=== PATIENT | female | born 1985 | race Caucasian/White ===

== ENCOUNTER 2018-01-18 10:19 | Emergency (ER) | payer OTHER ==
[2018-01-18 11:27] LABS: Absolute Lymphocytes (CBC) 2.6 K/uL (0.7-4.9); Absolute Monocytes 0.8 K/uL (0.1-1.3); Basophils % 0.4 % (0-1.3); Eosinophils % 3.7 % (0-4.4); Hematocrit 40.5 % (36.0-45.0); Lymphocytes % 29.4 % (15.3-44.8); MCH 30.9 pg (27.0-35.0); MPV 9.2 fL (7.6-11.3); Monocytes % 9.3 % (3.3-12.3); RBC Red Blood Cell Count 4.49 M/uL (3.86-4.86)
--- NOTE | 2018-01-18 11:27 | RAD REPORT ---
EXAM DESCRIPTION: RAD - Chest Single View - 01/18/2018 11:13 am CLINICAL HISTORY: CHEST PAIN Chest pain. COMPARISON: CHEST SINGLE VIEW dated 03/28/2009 FINDINGS: Portable technique limits examination quality. The lungs are grossly clear. The heart is normal in size. No displaced fractures. IMPRESSION: No acute intrathoracic process suspected.
[2018-01-18 11:45] LABS: BUN Blood Urea Nitrogen 14 mg/dL (7-18); Bicarbonate 28 mmol/L (21-32); Glucose Level 137 mg/dL (74-106); Potassium 3.3 mmol/L (3.5-5.1); Sodium Level 139 mmol/L (136-145); Troponin (Emerg Dept Use Only) < 0.02 ng/mL (0.0-0.045)
--- NOTE | 2018-01-18 11:53 | ER ---
Nurse's Notes [facility] Name: Marlys Davis Age: 32 yrs Sex: Female : 1985 Arrival Date: 01/18/2018 Time: 10:22 Bed 13 Private MD: ANGEL LUIS Diagnosis: Chest pain, unspecified Presentation: 01/18 10:28 Presenting complaint: Patient states: " I was walking in [employer] and I got a ph tearing chest pain and got very SOB." Pt reports pain in center of chest, SOB, and dizziness when pain occurred, denies N/V. Transition of care: patient was not received from another setting of care. Onset of symptoms was January 18, 2018. Risk Assessment: Do you want to hurt yourself or someone else? Patient reports no desire to harm self or others. Initial Sepsis Screen: Does the patient meet any 2 criteria? No. Patient's initial sepsis screen is negative. Does the patient have a suspected source of infection? No. Patient's initial sepsis screen is negative. Care prior to arrival: None. 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 - Social history:: The patient lives at home, Smoking status: Patient/guardian denies using tobacco. - Ebola Screening: : Patient negative for fever greater than or equal to 101.5 degrees Fahrenheit, and additional compatible Ebola Virus Disease symptoms. Screenin:30 Abuse screen: Denies threats or abuse. Nutritional screening: No deficits noted. rb1 Tuberculosis screening: No symptoms or risk factors identified. Fall Risk None identified. Assessment: 10:30 General: Appears in no apparent distress. comfortable, obese, Behavior is calm, rb1 cooperative. Pain: Complains of pain in mid-sternal area Pain does not radiate. Pain currently is 8 out of 10 on a pain scale. Pain began 20 minutes ago. Neuro: Level of Consciousness is awake, alert, obeys commands, Oriented to person, place, time, situation. Neuro: Reports dizziness. Cardiovascular: Capillary refill < 3 seconds is brisk in bilateral fingers. Respiratory: Reports shortness of breath at rest Airway is patent Respiratory effort is even, unlabored, Respiratory pattern is regular, symmetrical. GI: No signs and/or symptoms were reported involving the gastrointestinal system. : No signs and/or symptoms were reported regarding the genitourinary system. Derm: Skin is pink, warm \\T\\ dry. 11:30 Reassessment: Patient appears in no apparent distress at this time. Patient and/or rb1 family updated on plan of care and expected duration. Pain level reassessed. Patient is alert, oriented x 3, equal unlabored respirations, skin warm/dry/pink. Vital Signs: 10:30 BP 144 / 91; Pulse 99; Resp 20; Temp 98.2; Pulse Ox 96% on R/A; Weight 149.69 kg; ph Height 5 ft. 7 in. (170.18 cm); Pain 5/10; 11:30 BP 129 / 82; Pulse 86; Resp 19; Pulse Ox 99% ; rb1 12:10 BP 121 / 74; Pulse 89; Resp 16; Pulse Ox 99% ; jl7 10:30 Body Mass Index 51.68 (149.69 kg, 170.18 cm) ph ED Course: 10:22 Patient arrived in ED. sb2 10:22 ANGEL LUIS is Private Physician. sb2 10:30 Triage completed. ph 10:30 Juliano Carter MD is Attending Physician. gs 10:30 Patient has correct armband on for positive identification. Placed in gown. Bed in low rb1 position. Call light in reach. Side rails up X 1. tube and manifold builder on. Pulse ox on. NIBP on. Warm blanket given. 10:30 Arm band placed on right wrist. rb1 10:30 Patient maintains SpO2 saturation greater than 95% on room air. rb1 10:31 Tigist Recinos, EMMA is Primary Nurse. rb1 11:08 Inserted saline lock: 20 gauge in right forearm, using aseptic technique. Blood sm4 collected. 11:13 XRAY Chest (1 view) In Process Unspecified. EDMS 11:14 X-ray completed. Portable x-ray completed in exam room. Patient tolerated procedure jb2 well. 11:27 EKG done, by final operations technician. at1 12:10 No provider procedures requiring assistance completed. IV discontinued, intact, jl7 bleeding controlled, No redness/swelling at site. Pressure dressing applied. Administered Medications: No medications were administered Outcome: 11:52 Discharge ordered by MD. gs 12:10 Discharged to home ambulatory. jl7 12:10 Condition: stable 12:10 Discharge instructions given to patient, Instructed on discharge instructions, follow up and referral plans. Demonstrated understanding of instructions, follow-up care. 12:11 Patient left the ED. jl7 12:17 Patient left the ED. Signatures: Dispatcher [employer] EDMS Joe Landon jb2 Siria Browne, student records coordinator EKG Tat1 Maria L Yan RN EMMA Tigist Recinos, RN RN rb1 Grecia Bernal RN RN jl7 Juliano Carter MD MD Mckenna Hill sb2 Ariel Loja RN RN sm4
--- NOTE | 2018-01-18 11:53 | EDPHYS ---
Physician Documentation [facility] Name: Marlys Davis Age: 32 yrs Sex: Female : 1985 Arrival Date: 01/18/2018 Time: 10:22 Bed 13 Private MD: ANGEL LUIS ED Physician Juliano Carter HPI: 01/18 12:03 This 32 yrs old Female presents to ER via Ambulatory with complaints of Chest gs Pain, Shortness Of Breath. 12:03 The patient or guardian reports chest pain that is located primarily in the anterior gs chest wall. The pain does not radiate. Associated signs and symptoms: Pertinent positives: shortness of breath. The chest pain is described as sharp. Duration: The patient or guardian reports a single episode, that lasted 5 minute(s). Modifying factors: The symptoms are alleviated by nothing. the symptoms are aggravated by nothing. Severity of pain: At its worst the pain was moderate in the emergency department the pain has resolved and did so just prior to arrival. The patient has not experienced similar symptoms in the past. 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 - Social history:: The patient lives at home, Smoking status: Patient/guardian denies using tobacco. - Ebola Screening: : Patient negative for fever greater than or equal to 101.5 degrees Fahrenheit, and additional compatible Ebola Virus Disease symptoms. ROS: 12:03 All other systems are negative. gs Exam: 12:03 Constitutional: The patient appears alert, awake. gs 12:09 Head/Face: Normocephalic, atraumatic. Eyes: Pupils equal round and reactive to light, gs extra-ocular motions intact. Lids and lashes normal. Conjunctiva and sclera are non-icteric and not injected. Cornea within normal limits. Periorbital areas with no swelling, redness, or edema. ENT: Nares patent. No nasal discharge, no septal abnormalities noted. Tympanic membranes are normal and external auditory canals are clear. Oropharynx with no redness, swelling, or masses, exudates, or evidence of obstruction, uvula midline. Mucous membranes moist. Neck: Trachea midline, no thyromegaly or masses palpated, and no cervical lymphadenopathy. Supple, full range of motion without nuchal rigidity, or vertebral point tenderness. No Meningismus. Chest/axilla: Normal chest wall appearance and motion. Nontender with no deformity. No lesions are appreciated. Cardiovascular: Regular rate and rhythm with a normal S1 and S2. No gallops, murmurs, or rubs. Normal PMI, no JVD. No pulse deficits. Respiratory: Lungs have equal breath sounds bilaterally, clear to auscultation and percussion. No rales, rhonchi or wheezes noted. No increased work of breathing, no retractions or nasal flaring. Abdomen/GI: Soft, non-tender, with normal bowel sounds. No distension or tympany. No guarding or rebound. No evidence of tenderness throughout. Back: No spinal tenderness. No costovertebral tenderness. Full range of motion. Skin: Warm, dry with normal turgor. Normal color with no rashes, no lesions, and no evidence of cellulitis. MS/ Extremity: Pulses equal, no cyanosis. Neurovascular intact. Full, normal range of motion. Neuro: Awake and alert, GCS 15, oriented to person, place, time, and situation. Cranial nerves II-XII grossly intact. Motor strength 5/5 in all extremities. Sensory grossly intact. Cerebellar exam normal. Normal gait. 12:09 Constitutional: The patient appears in no acute distress. Vital Signs: 10:30 BP 144 / 91; Pulse 99; Resp 20; Temp 98.2; Pulse Ox 96% on R/A; Weight 149.69 kg; ph Height 5 ft. 7 in. (170.18 cm); Pain 5/10; 11:30 BP 129 / 82; Pulse 86; Resp 19; Pulse Ox 99% ; rb1 12:10 BP 121 / 74; Pulse 89; Resp 16; Pulse Ox 99% ; jl7 10:30 Body Mass Index 51.68 (149.69 kg, 170.18 cm) ph MDM: 10:42 Patient medically screened. gs 12:09 Differential diagnosis: anxiety, coronary artery disease chest wall pain, pulmonary gs embolus. Data reviewed: vital signs, nurses notes. Counseling: I had a detailed discussion with the patient and/or guardian regarding: the historical points, exam findings, and any diagnostic results supporting the discharge/admit diagnosis, the presence of at least one elevated blood pressure reading (>120/80) during this emergency department visit, lab results, radiology results, the need for outpatient follow up. Special discussion: I have referred the patient to see his PCP for further evaluation of high blood pressure. 01/18 10:43 Order name: Basic Metabolic Panel; Complete Time: 11:51 01/18 10:43 Order name: CBC with Diff; Complete Time: 11:51 01/18 10:43 Order name: Troponin (emerg Dept Use Only); Complete Time: 11:51 01/18 10:43 Order name: D-Dimer; Complete Time: 11:51 01/18 12:09 Order name: Urine Dipstick--Ancillary (enter results) eb 01/18 12:09 Order name: Urine --Ancillary (enter results) eb 01/18 10:43 Order name: XRAY Chest (1 view); Complete Time: 11:51 01/18 10:43 Order name: EKG; Complete Time: 10:44 01/18 10:43 Order name: Cardiac monitoring; Complete Time: 11:07 01/18 10:43 Order name: EKG - Nurse/Tech; Complete Time: 11:52 01/18 10:43 Order name: IV Saline Lock; Complete Time: 11:35 01/18 10:43 Order name: Labs collected and sent; Complete Time: 11:35 01/18 10:43 Order name: O2 Per Protocol; Complete Time: 11:15 01/18 10:43 Order name: O2 Sat Monitoring; Complete Time: 11:15 01/18 10:43 Order name: Urine Dipstick-Ancillary (obtain specimen); Complete Time: 16:28 01/18 10:43 Order name: Urine Test (obtain specimen); Complete Time: 16:28 gs Administered Medications: No medications were administered Disposition: 01/18/18 11:52 Discharged to Home. Impression: Chest pain, unspecified. - Condition is Stable. - Discharge Instructions: Nonspecific Chest Pain, Managing Your Hypertension. - Medication Reconciliation Form, Thank You Letter, Antibiotic Education, Prescription Opioid Use form. - Follow up: Private Physician; When: 2 - 3 days; Reason: Re-evaluation by your physician. Signatures: Dispatcher [employer] EDMS Tigist Recinos RN MEMA [place] Grecia Bernal RN RN jl7 Juliano Carter MD MD Corrections: (The following items were deleted from the chart) 12:11 11:52 01/18/2018 11:52 Discharged to Home. Impression: Chest pain, unspecified. jl7 Condition is Stable. Forms are Medication Reconciliation Form, Thank You Letter, Antibiotic Education, Prescription Opioid Use. Follow up: Private Physician; When: 2 - 3 days; Reason: Re-evaluation by your physician. 12:17 12:11 01/18/2018 11:52 Discharged to Home. Impression: Chest pain, unspecified. gs Condition is Stable. Discharge Instructions: Nonspecific Chest Pain. Forms are Medication Reconciliation Form, Thank You Letter, Antibiotic Education, Prescription Opioid Use. Follow up: Private Physician; When: 2 - 3 days; Reason: Re-evaluation by your physician. jl7
--- NOTE | 2018-01-18 12:18 | EKG ---
Test Date: 2018-01-18 Test Time: 10:42:34 Analysis Internship: [facility] MEASUREMENT RESULTS: Intervals: Rate: 92 CO: 138 QRSD: 90 QT: 374 QTc: 462 [place]: P: 37 CO: 138 QRS: 17 T: 56 INTERPRETIVE STATEMENTS: Normal sinus rhythm Normal ECG No previous ECG available for comparison Electronically Signed On 01-18-18 12:17:41 CDT by Nate Chand
[2018-01-18 13:44] LABS: Urine Blood NEGATIVE (NEG); Urine Glucose NEGATIVE (NEG); Urine Protein NEGATIVE (NEG)
== END 2018-01-18 12:17 | disposition home or self-care (01) ==
LOC: ER 10:19
DX: R07.9 Chest pain, unspecified (principal); F41.9 Anxiety disorder, unspecified; Z91.018 Allergy to other foods
CPT/HCPCS: 36415; 71045; 80048; 81003; 81025; 84484; 85025; 85379; 93005; 99285

== ENCOUNTER 2018-11-10 22:05 | Emergency (ER) | payer OTHER ==
[2018-11-10 23:34] LABS: Absolute Lymphocytes (CBC) 2.1 K/uL (0.7-4.9); Basophils % 0.6 % (0-1.3); Eosinophils % 5.3 % (0-4.4); Lymphocytes % 22.1 % (15.3-44.8); Monocytes % 8.5 % (3.3-12.3); RBC Red Blood Cell Count 4.56 M/uL (3.86-4.86)
[2018-11-10 23:41] LABS: ALT/SGPT 54 U/L (12-78); AST/SGOT 29 U/L (15-37); Albumin 3.9 g/dL (3.4-5.0); Alkaline Phosphatase 87 U/L (45-117); BUN Blood Urea Nitrogen 12 mg/dL (7-18); Bicarbonate 27 mmol/L (21-32); Bilirubin Direct < 0.1 mg/dL (0-0.2); Bilirubin Total 0.3 mg/dL (0.2-1.0); Glucose Level 105 mg/dL (74-106); Lipase 84 U/L (73-393); Potassium 3.5 mmol/L (3.5-5.1); Protein, Total 7.2 g/dL (6.4-8.2); Sodium Level 142 mmol/L (136-145)
[2018-11-10] MEDS ORDERED: PROMETHAZINE 25 MG/ML VIAL ONE (23:56)
[2018-11-11 00:34] LABS: Urine Blood NEGATIVE (NEG); Urine Glucose NEGATIVE (NEG); Urine Protein NEGATIVE (NEG); Urine pH 6.5 (5.0-7.0)
--- NOTE | 2018-11-11 02:27 | EDPHYS ---
Physician Documentation [facility] Name: Marlys Davis Age: 33 yrs Sex: Female : 1985 Arrival Date: 11/10/2018 Time: 22:09 Bed 6 Private MD: ED Physician Ranjeet Woods HPI: 11/11 00:29 This 33 yrs old Female presents to ER via Ambulatory with complaints of pm1 Abdominal Pain. 00:29 The patient presents with abdominal pain in the epigastric area. Onset: The pm1 symptoms/episode began/occurred 1 week(s) ago. The symptoms do not radiate. 00:30 Associated signs and symptoms: Pertinent positives: diarrhea, nausea, Pertinent pm1 negatives: chest pain, dysuria, fever, shortness of breath. The symptoms are described as burning, constant. Modifying factors: The symptoms are alleviated by right side lying position. the symptoms are aggravated by lying down . Severity of pain: in the emergency department the pain is actually worse. The patient has not recently seen a physician. Historical: - Allergies: 11/10 22:41 Tomatoes; fc 22:41 NKDA; fc - Home Meds: 22:41 lorazepam 2 mg oral tab 1 tab once daily [Active]; naproxen 500 mg Oral tab 1 tab tid fc prn [Active]; Otezla 30 mg oral tab 1 tab 2 times per day [Active]; - PMHx: 22:41 Anxiety; Psoractic Arthritis; psoriasis; fc - PSHx: 22:41 left forearm; fc - Immunization history:: Last tetanus immunization: unknown. - Social history:: Smoking status: Patient/guardian denies using tobacco, Patient/guardian denies using alcohol, street drugs. - Ebola Screening: : Patient negative for fever greater than or equal to 101.5 degrees Fahrenheit, and additional compatible Ebola Virus Disease symptoms Patient denies exposure to infectious person Patient denies travel to an Ebola-affected area in the 21 days before illness onset. ROS: 11/11 00:30 Constitutional: Negative for fever, chills, and weight loss, Eyes: Negative for injury, pm1 pain, redness, and discharge, ENT: Negative for injury, pain, and discharge, Neck: Negative for injury, pain, and swelling, Cardiovascular: Negative for chest pain, palpitations, and edema, Respiratory: Negative for shortness of breath, cough, wheezing, and pleuritic chest pain. Back: Negative for injury and pain, : Negative for injury, bleeding, discharge, and swelling, MS/Extremity: Negative for injury and deformity, Skin: Negative for injury, rash, and discoloration, Neuro: Negative for headache, weakness, numbness, tingling, and seizure. Abdomen/GI: Positive for abdominal pain, nausea, diarrhea, Negative for vomiting, constipation. Exam: 00:30 Constitutional: This is a well developed, well nourished patient who is awake, alert, pm1 and in no acute distress. Head/Face: Normocephalic, atraumatic. Eyes: Pupils equal round and reactive to light, extra-ocular motions intact. Lids and lashes normal. Conjunctiva and sclera are non-icteric and not injected. Cornea within normal limits. Periorbital areas with no swelling, redness, or edema. ENT: Nares patent. No nasal discharge, no septal abnormalities noted. Tympanic membranes are normal and external auditory canals are clear. Oropharynx with no redness, swelling, or masses, exudates, or evidence of obstruction, uvula midline. Mucous membranes moist. Neck: Trachea midline, no thyromegaly or masses palpated, and no cervical lymphadenopathy. Supple, full range of motion without nuchal rigidity, or vertebral point tenderness. No Meningismus. Chest/axilla: Normal chest wall appearance and motion. Nontender with no deformity. No lesions are appreciated. Cardiovascular: Regular rate and rhythm with a normal S1 and S2. No gallops, murmurs, or rubs. Normal PMI, no JVD. No pulse deficits. Respiratory: Lungs have equal breath sounds bilaterally, clear to auscultation and percussion. No rales, rhonchi or wheezes noted. No increased work of breathing, no retractions or nasal flaring. Back: No spinal tenderness. No costovertebral tenderness. Full range of motion. 00:30 Skin: Warm, dry with normal turgor. Normal color with no rashes, no lesions, and no evidence of cellulitis. MS/ Extremity: Pulses equal, no cyanosis. Neurovascular intact. Full, normal range of motion. 00:30 Abdomen/GI: Inspection: obese Bowel sounds: normal, Palpation: soft, mild abdominal tenderness, in the epigastric area, mass, is not appreciated, rebound tenderness, is not appreciated. 00:30 Neuro: Orientation: is normal, Motor: is normal, Sensation: is normal, no obvious gross deficits. Vital Signs: 11/10 22:15 BP 157 / 94; Pulse 82; Resp 18; Temp 97.5(O); Pulse Ox 98% on R/A; Weight 158.76 kg fc (R); Height 5 ft. 7 in. (170.18 cm) (R); Pain 6/10; 23:30 BP 135 / 79; Pulse 82; Resp 18; Pulse Ox 97% ; ea 11/11 00:42 BP 146 / 86; Pulse 68; Resp 18; Pulse Ox 96% on R/A; ea 01:07 BP 142 / 95; Pulse 80; Resp 18; Pulse Ox 98% on R/A; ea 02:50 BP 140 / 89; Pulse 81; Resp 18; Pulse Ox 98% on R/A; tl2 11/10 22:15 Body Mass Index 54.82 (158.76 kg, 170.18 cm) fc MDM: 11/10 22:26 Patient medically screened. pm1 11/11 00:33 Data reviewed: vital signs. Data interpreted: Pulse oximetry: on room air is 97 %. pm1 Interpretation: normal. 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 11/10 22:45 Order name: Basic Metabolic Panel pm1 11/10 22:45 Order name: CBC with Diff; Complete Time: 23:46 pm1 11/10 22:45 Order name: Creatinine for Radiology; Complete Time: 23:42 pm1 11/10 22:45 Order name: Hepatic Function; Complete Time: 23:43 pm1 11/10 22:45 Order name: Lipase; Complete Time: 23:43 pm1 11/10 22:46 Order name: Basic Metabolic Panel; Complete Time: 23:43 EDMS 11/10 22:28 Order name: US Abdomen Limited 11/10 22:45 Order name: IV Saline Lock; Complete Time: 23:04 pm1 11/10 22:55 Order name: CT Abd/Pelvis - IV Contrast Only pm1 11/10 22:56 Order name: Urine Dipstick--Ancillary (enter results); Complete Time: 01:20 mw2 11/10 22:56 Order name: Urine --Ancillary (enter results); Complete Time: 01:20 mw2 11/10 22:45 Order name: Labs collected and sent; Complete Time: 23:04 pm1 11/10 22:45 Order name: Urine Dipstick-Ancillary (obtain specimen); Complete Time: 22:49 pm1 11/10 22:45 Order name: Urine Test (obtain specimen); Complete Time: 22:49 pm1 Administered Medications: 11/10 23:15 Drug: Phenergan 12.5 mg Route: IVP; Site: left antecubital; ea 11/11 00:36 Follow up: Response: No adverse reaction; Nausea is decreased ea 02:49 Drug: GI Cocktail without - (Maalox Suspension 30 ml, Lidocaine Liquid 2 % 15 tl2 ml) Route: PO; 02:51 Follow up: Response: No adverse reaction; Marked relief of symptoms tl2 02:50 Drug: Pepcid 20 mg Route: IVP; Site: left antecubital; tl2 02:52 Follow up: Response: No adverse reaction tl2 Disposition: 09:33 Co-signature as Attending Physician, Ranjeet Woods MD I agree with the assessment and salvador plan of care. Disposition: 11/11/18 02:27 Discharged to Home. Impression: Unspecified abdominal pain. - Condition is Stable. - Discharge Instructions: Abdominal Pain, Adult. - Prescriptions for Bentyl 20 mg Oral Tablet - take 1 tablet by ORAL route every 6 hours As needed; 20 tablet. Pepcid 20 mg Oral Tablet - take 1 tablet by ORAL route every 12 hours for 10 days; 20 tablet. promethazine 25 mg Oral Tablet - take 1 tablet by ORAL route every 6 hours As needed; 20 tablet. - Medication Reconciliation Form, Thank You Letter, Antibiotic Education, Prescription Opioid Use, Work release form form. - Follow up: Emergency Department; When: As needed; Reason: Worsening of condition. Follow up: Private Physician; When: 2 - 3 days; Reason: Recheck today's complaints, Continuance of care, Re-evaluation by your physician. - Problem is new. - Symptoms have improved. Signatures: Dispatcher [employer] EDMS Ranjeet Woods, Winter Thompson MD, cha RN EMMA Silvino Inman NP STORE [facility] pm1 Zoila Martines RN RN tl2 Sherry Benitez RN RN ea Corrections: (The following items were deleted from the chart) 02:52 02:27 11/11/2018 02:27 Discharged to Home. Impression: Unspecified abdominal pain. tl2 Condition is Stable. Forms are Medication Reconciliation Form, Thank You Letter, Antibiotic Education, Prescription Opioid Use. Follow up: Emergency Department; When: As needed; Reason: Worsening of condition. Follow up: Private Physician; When: 2 - 3 days; Reason: Recheck today's complaints, Continuance of care, Re-evaluation by your physician. Problem is new. Symptoms have improved. pm1
--- NOTE | 2018-11-11 02:27 | ER ---
Nurse's Notes [facility] Name: Marlys Davis Age: 33 yrs Sex: Female : 1985 Arrival Date: 11/10/2018 Time: 22:09 Bed 6 Private MD: Diagnosis: Unspecified abdominal pain Presentation: 11/10 22:15 Presenting complaint: Patient states: that she has been having sharp mid/right upper fc abd pain x 1 week. Positive nausea and diarrhea. Transition of care: patient was not received from another setting of care. Onset of symptoms was November 03, 2018. Risk Assessment: Do you want to hurt yourself or someone else? Patient reports no desire to harm self or others. Initial Sepsis Screen: Does the patient meet any 2 criteria? No. Patient's initial sepsis screen is negative. Does the patient have a suspected source of infection? No. Patient's initial sepsis screen is negative. Care prior to arrival: None. 22:15 Method Of Arrival: Ambulatory 22:15 Acuity: CHRISTY 3 fc Historical: - Allergies: 22:41 Tomatoes; fc 22:41 NKDA; fc - Home Meds: 22:41 lorazepam 2 mg oral tab 1 tab once daily [Active]; naproxen 500 mg Oral tab 1 tab tid fc prn [Active]; Otezla 30 mg oral tab 1 tab 2 times per day [Active]; - PMHx: 22:41 Anxiety; Psoractic Arthritis; psoriasis; fc - PSHx: 22:41 left forearm; fc - Immunization history:: Last tetanus immunization: unknown. - Social history:: Smoking status: Patient/guardian denies using tobacco, Patient/guardian denies using alcohol, street drugs. - Ebola Screening: : Patient negative for fever greater than or equal to 101.5 degrees Fahrenheit, and additional compatible Ebola Virus Disease symptoms Patient denies exposure to infectious person Patient denies travel to an Ebola-affected area in the 21 days before illness onset. Screenin:15 Abuse screen: Denies threats or abuse. Nutritional screening: No deficits noted. fc Tuberculosis screening: No symptoms or risk factors identified. Fall Risk None identified. Assessment: 22:30 General: Appears uncomfortable, Behavior is calm, cooperative, appropriate for age. ea Pain: Complains of pain in abdomen. Neuro: Level of Consciousness is awake, alert, obeys commands, Oriented to person, place, time, situation. Cardiovascular: Patient's skin is warm and dry. Respiratory: Airway is patent Respiratory effort is even, unlabored, Respiratory pattern is regular, symmetrical. GI: Bowel sounds present X 4 quads. Abd is soft and non tender X 4 quads. Derm: Skin is pink, warm \T\ dry. 23:28 Reassessment: Patient and/or family updated on plan of care and expected duration. Pain ea level reassessed. Patient is alert, oriented x 3, equal unlabored respirations, skin warm/dry/pink. Awaiting on ultrasound results. 11/11 00:41 Reassessment: Patient and/or family updated on plan of care and expected duration. Pain ea level reassessed. Patient is alert, oriented x 3, equal unlabored respirations, skin warm/dry/pink. 01:06 Reassessment: Patient and/or family updated on plan of care and expected duration. Pain ea level reassessed. Patient is alert, oriented x 3, equal unlabored respirations, skin warm/dry/pink. Pt returned from CT. 02:50 Reassessment: Pt states GI cocktail relieved pain instantly. Pt verbalized tl2 understanding of discharge instructions, need for follow up and prescription usage Patient states feeling better. Vital Signs: 11/10 22:15 BP 157 / 94; Pulse 82; Resp 18; Temp 97.5(O); Pulse Ox 98% on R/A; Weight 158.76 kg fc (R); Height 5 ft. 7 in. (170.18 cm) (R); Pain 6/10; 23:30 BP 135 / 79; Pulse 82; Resp 18; Pulse Ox 97% ; ea 11/11 00:42 BP 146 / 86; Pulse 68; Resp 18; Pulse Ox 96% on R/A; ea 01:07 BP 142 / 95; Pulse 80; Resp 18; Pulse Ox 98% on R/A; ea 02:50 BP 140 / 89; Pulse 81; Resp 18; Pulse Ox 98% on R/A; tl2 11/10 22:15 Body Mass Index 54.82 (158.76 kg, 170.18 cm) ED Course: 11/10 22:09 Patient arrived in ED. mr 22:15 Arm band placed on Patient placed in an exam room, on a stretcher. fc 22:15 Patient has correct armband on for positive identification. Placed in gown. Bed in low fc position. Call light in reach. Side rails up X2. Pulse ox on. NIBP on. 22:15 No provider procedures requiring assistance completed. fc 22:23 Sherry Benitez, EMMA is Primary Nurse. ea 22:25 Silvino Inman NP is PHCP. pm1 22:25 Ranjeet Woods MD is Attending Physician. pm1 22:30 Triage completed. fc 22:56 US Abdomen Limited In Process Unspecified. EDMS 22:57 Radiology exam delayed due to lab results not completed at this time. (BUN/Creatinine) vm2 test not completed at this time. 23:03 Initial lab(s) drawn, by me, sent to lab. Inserted saline lock: 20 gauge in left lt1 antecubital area, using aseptic technique. 11/11 01:21 CT completed. Patient tolerated procedure well. Patient moved to CT via stretcher. Patient moved back from CT. 01:32 CT Abd/Pelvis - IV Contrast Only In Process Unspecified. EDMS 02:50 IV discontinued, intact, bleeding controlled, No redness/swelling at site. Pressure tl2 dressing applied. Administered Medications: 11/10 23:15 Drug: Phenergan 12.5 mg Route: IVP; Site: left antecubital; ea 11/11 00:36 Follow up: Response: No adverse reaction; Nausea is decreased ea 02:49 Drug: GI Cocktail without - (Maalox Suspension 30 ml, Lidocaine Liquid 2 % 15 tl2 ml) Route: PO; 02:51 Follow up: Response: No adverse reaction; Marked relief of symptoms tl2 02:50 Drug: Pepcid 20 mg Route: IVP; Site: left antecubital; tl2 02:52 Follow up: Response: No adverse reaction tl2 Outcome: 02:27 Discharge ordered by . pm1 02:50 Discharged to home ambulatory, with family. tl2 02:50 Condition: stable 02:50 Discharge instructions given to patient, family, Instructed on discharge instructions, follow up and referral plans. medication usage, Demonstrated understanding of instructions, follow-up care, medications, Prescriptions given X 3. 02:52 Patient left the ED. tl2 Signatures: Dispatcher [employer] EDLA Seema Diamond mr Loya, Nick Ronquillo, Winter, RN RN fc Silvino Inman, HRBP HRBP pm1 Zoila Martines, RN RN tl2 Manda Cleaning 2 Sherry Benitez, RN RN maricarmen Thomas, Lindsey 1
[2018-11-11] MEDS ORDERED: MAGNE/ALUM HYDROXD 30 ML UCUP ONE (02:55)
[2018-11-11] MEDS ORDERED: FAMOTIDINE 20 MG/2 ML VIAL IV ONE (02:55)
[2018-11-11] MEDS ORDERED: LIDOCAINE VISCOUS 2% SOLN 15 ML UDC ONE (02:55)
--- NOTE | 2018-11-11 07:54 | RAD REPORT ---
EXAM DESCRIPTION: US - Abdomen Exam Limited - 11/10/2018 10:56 pm CLINICAL HISTORY: Abdominal pain. COMPARISON: [id number] FINDINGS: The evaluation is limited secondary to body habitus. The gallbladder wall is not thickened. A gallstone is not seen. The biliary tree is normal caliber. IMPRESSION: Grossly normal gallbladder ultrasound
--- NOTE | 2018-11-11 11:20 | RAD REPORT ---
EXAM DESCRIPTION: CT - Abdomen Pelvis W Contrast - 11/11/2018 3:22 am CLINICAL HISTORY: EPIGASTRIC PAIN COMPARISON: None Available. TECHNIQUE: CT of the abdomen and pelvis performed following IV administration of iodinated contrast. DLP: 2254.8 mGycm FINDINGS: Lung Bases: The visualized lung bases are clear. Bones: Mild endplate spondylosis of the visualized thoracic and lumbar spine. Abdomen: Liver: The liver has normal size and decreased density. No intrahepatic mass or biliary dilatation. Gallbladder: No calcified gallstones. Spleen, Pancreas, and Adrenal Glands: The spleen, pancreas, and adrenal glands are unremarkable. Kidneys: The kidneys have normal size and contour without evidence of solid mass or hydronephrosis. Vasculature: The aorta and IVC have normal caliber and position. The portal vein is patent. The pro ximal visceral and renal arteries are patent. Stomach: The stomach and duodenum have normal course. Other: No free intraperitoneal air. Small fat-containing umbilical hernia. No free fluid or lymphad enopathy. Pelvis: Bladder: Urinary bladder is unremarkable. Bowel: No dilated loops of large or small bowel. Appendix: Normal appendix. Pelvis: Uterus is not enlarged. IMPRESSION: 1. No acute inflammatory or obstructive process identified. 2. Hepatic steatosis. This exam was performed according to our departmental dose-optimization program, which includes autom ated exposure control, adjustment of the mA and/or kV according to patient size and/or use of iterati ve reconstruction technique. Electronically signed by: Ronaldo Chambers 11/11/2018 1:43 AM CDT Due to temporary technical issues with the PACS/Fluency reporting system, reports are being signed by the in house radiologist as a courtesy to ensure prompt reporting. The interpreting radiologist is f ully responsible for the content of the report.
== END 2018-11-11 02:52 | disposition home or self-care (01) ==
LOC: ER 22:05
DX: R10.13 Epigastric pain (principal); F41.9 Anxiety disorder, unspecified; Z91.018 Allergy to other foods
CPT/HCPCS: 36415; 74177; 76705; 80048; 80076; 81003; 81025; 83690; 85025; 96375; 99284; J2550; Q9967

== ENCOUNTER 2020-07-03 05:33 | Emergency (ER) | payer OTHER ==
[2020-07-03] MEDS ORDERED: KETOROLAC 30 MG/ML INJ ONE (08:38)
--- NOTE | 2020-07-03 09:32 | ER ---
Nurse's Notes [facility] Name: Marlys Davis Age: 35 yrs Sex: Female : 1985 Arrival Date: 07/03/2020 Time: 05:35 Bed 11 Private MD: ANGEL LUIS Diagnosis: Low back pain-coccyx pain Presentation: 07/03 07:15 Acuity: CHRISTY 4 sg 07:15 Chief complaint: Patient states: I had a fall from standing position after slipping on sg ice yesterday, landed on my buttocks, having pain to the tailbone as well as lower back, bruising noted to the left elbow but pt states that is not concerning. Pt reports having a hx of psoriatic arthritis, which receives steroid injections and take biologic tabs. Coronavirus screen: Client denies travel out of the [place] in the last 14 days. At this time, the client does not indicate any symptoms associated with coronavirus-19. Ebola Screen: Patient negative for fever greater than or equal to 101.5 degrees Fahrenheit, and additional compatible Ebola Virus Disease symptoms Patient denies exposure to infectious person. Patient denies travel to an Ebola-affected area in the 21 days before illness onset. No symptoms or risks identified at this time. Initial Sepsis Screen: Does the patient meet any 2 criteria? No. Patient's initial sepsis screen is negative. Does the patient have a suspected source of infection? No. Patient's initial sepsis screen is negative. Risk Assessment: Do you want to hurt yourself or someone else? Patient reports no desire to harm self or others. 07:16 Onset of symptoms was July 03, 2020. Care prior to arrival: None. Transition of sg care: patient was not received from another setting of care. 07:16 Method Of Arrival: Ambulatory sg Historical: - Allergies: 06:35 NKDA; sg 06:35 Tomatoes; sg - PMHx: 06:35 Anxiety; Psoractic Arthritis; psoriasis; sg - PSHx: 06:35 left forearm; sg - Immunization history:: Adult Immunizations up to date. - Social history:: Patient/guardian denies using alcohol, street drugs, The patient lives with family, Smoking status: Patient denies any tobacco usage or history of. - Family history:: not pertinent. Screenin:00 Abuse screen: Denies threats or abuse. Denies injuries from another. Nutritional ss screening: No deficits noted. Tuberculosis screening: Never had TB. Fall Risk None identified. Assessment: 08:00 General: Appears uncomfortable, Behavior is calm, cooperative. Pain: Complains of pain ss in lumbar area Pain currently is 8 out of 10 on a pain scale. Quality of pain is described as aching, tender, Pain began 1 day ago. Is continuous. Neuro: Level of Consciousness is awake, alert, obeys commands, Oriented to person, place, time, situation, Pin Inserter are equal bilaterally Moves all extremities. Full function Speech is normal, Facial symmetry appears normal, Pupils are PERRLA. Cardiovascular: Capillary refill < 3 seconds is brisk in bilateral fingers Patient's skin is warm and dry. Respiratory: Respiratory effort is even, unlabored. GI: No signs and/or symptoms were reported involving the gastrointestinal system. Derm: Skin is intact, is healthy with good turgor, Skin is pink, warm \T\ dry. normal. Musculoskeletal: Circulation, motion, and sensation intact. Range of motion: intact in all extremities. 09:52 Reassessment: Patient appears in no apparent distress at this time. Patient and/or ss family updated on plan of care and expected duration. Pain level reassessed. Patient is alert, oriented x 3, equal unlabored respirations, skin warm/dry/pink. Vital Signs: 07:15 BP 158 / 92; Pulse 80; Resp 18; Temp 98.9(TE); Pulse Ox 100% on R/A; Weight 142.88 kg sg (R); Height 5 ft. 7 in. (170.18 cm) (R); Pain 8/10; 07:15 Body Mass Index 49.34 (142.88 kg, 170.18 cm) sg ED Course: 05:35 Patient arrived in ED. do 05:35 ANGEL LUIS is Private Physician. do 06:36 Arm band placed on. sg 07:15 Triage completed. sg 07:55 Martin Peoples MD is Attending Physician. ma2 08:00 Patient has correct armband on for positive identification. Bed in low position. Call ss light in reach. 08:20 Karli Mcdonald, EMMA is Primary Nurse. ss 09:28 Lumbar Spine (3 Views) XRAY In Process Unspecified. EDMS 09:51 No provider procedures requiring assistance completed. Patient did not have IV access ss during this emergency room visit. Administered Medications: 08:28 Drug: TORadol 60 mg Route: IM; Site: right gluteus; 09:52 Follow up: Response: No adverse reaction ss Outcome: 09:32 Discharge ordered by . nando 09:51 Discharged to home ambulatory. ss 09:51 Condition: good 09:51 Discharge instructions given to patient, Instructed on discharge instructions, follow up and referral plans. Demonstrated understanding of instructions, follow-up care, medications, Prescriptions given X 1. 09:52 Patient left the ED. Signatures: Dispatcher [employer] EDPR Vikram Kiran RN RN Karli Mcdonald RN RN ss Ogletree, Danielle do Alzahri, Mohammad, MD MD ma2
--- NOTE | 2020-07-03 09:32 | EDPHYS ---
Physician Documentation [facility] Name: Marlys Davis Age: 35 yrs Sex: Female : 1985 Arrival Date: 07/03/2020 Time: 05:35 Bed 11 Private MD: ANGEL LUIS ED Physician Martin Peoples HPI: 07/03 09:29 This 35 yrs old Female presents to ER via Ambulatory with complaints of Fall ma2 Injury, Low Back Pain. 09:29 Details of fall: The patient fell from an upright position. Onset: The symptoms/episode ma2 began/occurred suddenly, 3 day(s) ago. Severity of symptoms: At their worst the symptoms were mild, in the emergency department the symptoms are unchanged. The patient has not experienced similar symptoms in the past. Historical: - Allergies: 06:35 NKDA; sg 06:35 Tomatoes; sg - PMHx: 06:35 Anxiety; Psoractic Arthritis; psoriasis; sg - PSHx: 06:35 left forearm; sg - Immunization history:: Adult Immunizations up to date. - Social history:: Patient/guardian denies using alcohol, street drugs, The patient lives with family, Smoking status: Patient denies any tobacco usage or history of. - Family history:: not pertinent. ROS: 09:29 Constitutional: Negative for fever, chills, and weight loss. ma2 09:29 All other systems are negative. Exam: 09:29 Constitutional: This is a well developed, well nourished patient who is awake, alert, ma2 and in no acute distress. Chest/axilla: Normal chest wall appearance and motion. Nontender with no deformity. No lesions are appreciated. Cardiovascular: Regular rate and rhythm with a normal S1 and S2. No gallops, murmurs, or rubs. Normal PMI, no JVD. No pulse deficits. Respiratory: Lungs have equal breath sounds bilaterally, clear to auscultation and percussion. No rales, rhonchi or wheezes noted. No increased work of breathing, no retractions or nasal flaring. Abdomen/GI: Soft, non-tender, with normal bowel sounds. No distension or tympany. No guarding or rebound. No evidence of tenderness throughout. Back: ttp over right lateral coccyx, otherwise No spinal tenderness. No costovertebral tenderness. Full range of motion. Skin: Warm, dry with normal turgor. Normal color with no rashes, no lesions, and no evidence of cellulitis. MS/ Extremity: Pulses equal, no cyanosis. Neurovascular intact. Full, normal range of motion. Neuro: Awake and alert, GCS 15, oriented to person, place, time, and situation. Cranial nerves II-XII grossly intact. Motor strength 5/5 in all extremities. Sensory grossly intact. Cerebellar exam normal. Normal gait. Vital Signs: 07:15 BP 158 / 92; Pulse 80; Resp 18; Temp 98.9(TE); Pulse Ox 100% on R/A; Weight 142.88 kg sg (R); Height 5 ft. 7 in. (170.18 cm) (R); Pain 8/10; 07:15 Body Mass Index 49.34 (142.88 kg, 170.18 cm) sg MDM: 07:55 Patient medically screened. ma2 09:29 Differential diagnosis: abrasion, contusion, sprain, strain. Data reviewed: vital ma2 signs, nurses notes. Counseling: I had a detailed discussion with the patient and/or guardian regarding: the historical points, exam findings, and any diagnostic results supporting the discharge/admit diagnosis, the presence of at least one elevated blood pressure reading (>120/80) during this emergency department visit, the need for outpatient follow up. Medical screen evaluation completed. [facility] emergency medical condition absent. Response to treatment: the patient's symptoms have markedly improved after treatment. 07/03 08:17 Order name: Lumbar Spine (3 Views) XRAY ma2 Administered Medications: 08:28 Drug: TORadol 60 mg Route: IM; Site: right gluteus; ss 09:52 Follow up: Response: No adverse reaction ss Disposition: 07/03/20 09:32 Discharged to Home. Impression: Low back pain - coccyx pain. - Condition is Stable. - Discharge Instructions: Back Pain, Adult, Musculoskeletal Pain, Back Injury Prevention, [id number], Back Pain, Adult, [id number]. - Prescriptions for Diclofenac Sodium 75 mg Oral Tablet Sustained Release - take 1 tablet by ORAL route 2 times per day; 30 tablet. - Medication Reconciliation Form, Thank You Letter, Antibiotic Education, Prescription Opioid Use form. - Follow up: Private Physician; When: Tomorrow; Reason: Continuance of care. Signatures: Dispatcher [employer] Vikram Ferreira RN RN Karli Mcdonald RN RN Martin Peoples MD MD ma2 Corrections: (The following items were deleted from the chart) 09:52 09:32 07/03/2020 09:32 Discharged to Home. Impression: Low back pain - coccyx pain. ss Condition is Stable. Prescriptions for Diclofenac Sodium 75 mg Oral Tablet Sustained Release - take 1 tablet by ORAL route 2 times per day; 30 tablet. and Forms are Medication Reconciliation Form, Thank You Letter, Antibiotic Education, Prescription Opioid Use. Follow up: Private Physician; When: Tomorrow; Reason: Continuance of care. ma2
--- NOTE | 2020-07-03 09:42 | RAD REPORT ---
EXAM DESCRIPTION: RAD - Lumbar Spine 3 Views - 07/03/2020 9:28 am CLINICAL HISTORY: Back pain FINDINGS: The alignment of the lumbar spine is satisfactory. No fracture or dislocation is seen. Mild spondylosis involves the lumbar spine
[2020-07-03 09:57] VITALS: BP 158/92; TEMP 98.9; O2SAT 100
== END 2020-07-03 09:52 | disposition home or self-care (01) ==
LOC: ER 05:33
DX: M54.5 Low back pain (principal); W01.0XXA Fall on same level from slipping, tripping and stumbling without subsequent striking against object, initial encounter; Y93.29 Activity, other involving ice and snow; Y92.9 Unspecified place or not applicable
CPT/HCPCS: 72100; 96372; 99283

== ENCOUNTER 2020-10-25 18:45 | Emergency (ER) | payer OTHER, SELFPAY ==
[2020-10-25 19:57] LABS: ALT/SGPT 36 U/L (12-78); Albumin 3.6 g/dL (3.4-5.0); Alkaline Phosphatase 99 U/L (45-117); BUN Blood Urea Nitrogen 9 mg/dL (7-18); Bicarbonate 26 mmol/L (21-32); Bilirubin Total 0.3 mg/dL (0.2-1.0); Glucose Level 79 mg/dL (74-106); NT PRO-BNP 73 pg/mL (<125); Protein, Total 7.7 g/dL (6.4-8.2); Sodium Level 139 mmol/L (136-145); Troponin (Emerg Dept Use Only) < 0.02 ng/mL (0.0-0.045)
[2020-10-25 20:00] LABS: Bilirubin Direct < 0.1 mg/dL (0-0.2)
[2020-10-25 20:07] LABS: AST/SGOT 30 U/L (15-37); Magnesium 2.3 mg/dL (1.8-2.4)
--- NOTE | 2020-10-25 20:13 | RAD REPORT ---
EXAM DESCRIPTION: RAD - Chest Single View - 10/25/2020 7:42 pm CLINICAL HISTORY: CHEST PAIN Chest pain. COMPARISON: Chest Single View dated 01/18/2018; CHEST SINGLE VIEW dated 03/28/2009 FINDINGS: Portable technique limits examination quality. The lungs are grossly clear. The heart is upper limit of normal in size. No displaced fractures. IMPRESSION: No acute intrathoracic process suspected.
[2020-10-25 20:22] LABS: Absolute Lymphocytes (CBC) 3.3 K/uL (0.7-4.9); Basophils % 0.5 % (0-1.3); Hematocrit 44.3 % (36.0-45.0); Lymphocytes % 29.4 % (15.3-44.8); MPV 9.5 fL (7.6-11.3); RBC Red Blood Cell Count 5.06 M/uL (3.86-4.86)
--- NOTE | 2020-10-25 20:36 | ER ---
Nurse's Notes [facility] Name: aMrlys Davis Age: 35 yrs Sex: Female : 1985 Arrival Date: 10/25/2020 Time: 19:06 Bed 13 Private MD: Diagnosis: Chest pain on breathing;Hypertension Presentation: 10/25 19:06 Chief complaint: EMS states: Pt had episode of hypertension BP of 162/100 and and chest wh pain that radiates to the right shoulder. Pt states no Hx of Hypertension but does have Anxiety. Per EMS BP went down to 115/74 afterwards. Coronavirus screen: Client denies travel out of the [place] in the last 14 days. At this time, the client does not indicate any symptoms associated with coronavirus-19. Ebola Screen: Patient negative for fever greater than or equal to 101.5 degrees Fahrenheit, and additional compatible Ebola Virus Disease symptoms Patient denies exposure to infectious person. Initial Sepsis Screen: Does the patient meet any 2 criteria? No. Patient's initial sepsis screen is negative. Does the patient have a suspected source of infection? No. Patient's initial sepsis screen is negative. Risk Assessment: Do you want to hurt yourself or someone else? Patient reports no desire to harm self or others. Onset of symptoms was October 25, 2020. 19:06 Method Of Arrival: EMS: [facility] 19:06 Acuity: CHRISTY 3 SCIENCE ANALYST: 19:11 [facility] 10/2020 Historical: - Allergies: 19:10 Tomatoes; wh - PMHx: 19:10 Anxiety; Psoractic Arthritis; psoriasis; wh - Immunization history:: Adult Immunizations not up to date. - Social history:: Smoking status: Patient denies any tobacco usage or history of. Screenin:09 Abuse screen: Denies threats or abuse. Denies injuries from another. Nutritional screening: No deficits noted. Tuberculosis screening: No symptoms or risk factors identified. Fall Risk None identified. Assessment: 19:10 General: Appears in no apparent distress. Behavior is calm, cooperative, appropriate wh for age. Pain: Complains of pain in chest Pain radiates to RIght shoulder Quality of pain is described as sharp, squeezing, Pain began 1 hour ago. Neuro: Level of Consciousness is awake, alert, obeys commands, Oriented to person, place, time, situation, Appropriate for age. Cardiovascular: Heart tones S1 S2 Rhythm is regular. Respiratory: Airway is patent Respiratory effort is even, unlabored, Respiratory pattern is regular, symmetrical, Breath sounds are clear bilaterally. GI: Abdomen is round non-distended. : No signs and/or symptoms were reported regarding the genitourinary system. EENT: No signs and/or symptoms were reported regarding the EENT system. Derm: Skin is intact, is healthy with good turgor, Skin is pink, warm \T\ dry. normal. Musculoskeletal: Circulation, motion, and sensation intact. 20:42 Reassessment: Patient appears in no apparent distress at this time. Patient and/or wh family updated on plan of care and expected duration. Pain level reassessed. Patient is alert, oriented x 3, equal unlabored respirations, skin warm/dry/pink. Vital Signs: 19:06 BP 135 / 92; Pulse 76; Resp 18; Pulse Ox 97% ; Weight 136.08 kg; Height 5 ft. 7 in. (170.18 cm); 20:42 BP 138 / 83; Pulse 75; Resp 18; Pulse Ox 100% on R/A; wh 19:06 Body Mass Index 46.99 (136.08 kg, 170.18 cm) ED Course: 19:06 Patient arrived in ED. 19:06 Poala Ralph FNP-C [facility]. 19:06 Kasi Lundy MD is Attending Physician. kb 19:06 Wallace Meehan MD is Attending Physician. kb 19:09 Triage completed. 19:10 Patient has correct armband on for positive identification. Bed in low position. Call light in reach. Side rails up X 1. athletic monitor on. Pulse ox on. NIBP on. 19:11 Opal Reed, RN is Primary Nurse. 19:11 Arm band placed on right wrist. 19:42 XRAY Chest (1 view) In Process Unspecified. EDMS 20:43 No provider procedures requiring assistance completed. Patient did not have IV access during this emergency room visit. Administered Medications: No medications were administered Outcome: 20:35 Discharge ordered by . kb 20:43 Discharged to home ambulatory, with family. 20:43 Condition: stable 20:43 Discharge instructions given to patient, family, Instructed on discharge instructions, follow up and referral plans. POC Demonstrated understanding of instructions, follow-up care, POC 20:43 Patient left the ED. wh Signatures: Dispatcher [employer] Paola Mari FNP-C FNP-Ckb Habalo, Winsy RN RN wh Corrections: (The following items were deleted from the chart) 20:42 19:10 Pain: Complains of pain in chest Pain radiates to RIght shoulder Quality of pain wh is described as sharp, Pain began 1 hour ago. wh
--- NOTE | 2020-10-25 20:36 | EDPHYS ---
Physician Documentation [facility] Name: Marlys Davis Age: 35 yrs Sex: Female : 1985 Arrival Date: 10/25/2020 Time: 19:06 Bed 13 Private MD: ED Physician Wallace Meehan HPI: 10/25 19:49 This 35 yrs old Female presents to ER via EMS with complaints of High Blood kb Pressure. 19:49 The patient has elevated blood pressure and discovered this work. Onset: The kb symptoms/episode began/occurred just prior to arrival. Associated signs and symptoms: Pertinent positives: chest pain, Pertinent negatives: dizziness, dyspnea, headache, lightheadedness, nausea, visual changes, vomiting, weakness. Severity of symptoms: At its worst the blood pressure was 160 mm Hg, in the emergency department the blood pressure is improved, 135 mm Hg. The patient has not experienced similar symptoms in the past. The patient has not recently seen a physician. Pt reports she had a pain in center of her chest that radiated to right side of a minute so she checked her bp and it was 162/100. States that worried her so she wanted to come get checked out for the elevated bp. 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 - Social history:: Smoking status: Patient denies any tobacco usage or history of. ROS: 19:48 Constitutional: Negative for fever, chills, and weight loss. kb 19:48 Cardiovascular: Positive for chest pain, Negative for edema, orthopnea, palpitations, paroxysmal nocturnal dyspnea. 19:48 All other systems are negative. Exam: 19:48 Constitutional: This is a well developed, well nourished patient who is awake, alert, kb and in no acute distress. Head/Face: Normocephalic, atraumatic. ENT: Moist Mucous membranes Cardiovascular: Regular rate and rhythm with a normal S1 and S2. No gallops, murmurs, or rubs. No pulse deficits. Respiratory: Respirations even and unlabored. No increased work of breathing, no retractions or nasal flaring. Abdomen/GI: Soft, non-tender. No distention Skin: Warm, dry with normal turgor. Normal color. MS/ Extremity: Pulses equal, no cyanosis. Neurovascular intact. Full, normal range of motion. Neuro: Awake and alert, GCS 15, oriented to person, place, time, and situation. Moves all extremities. Normal gait. Psych: Awake, alert, with orientation to person, place and time. Behavior, mood, and affect are within normal limits. 19:48 ECG was reviewed by the Attending Physician. Vital Signs: 19:06 BP 135 / 92; Pulse 76; Resp 18; Pulse Ox 97% ; Weight 136.08 kg; Height 5 ft. 7 in. wh (170.18 cm); 20:42 BP 138 / 83; Pulse 75; Resp 18; Pulse Ox 100% on R/A; wh 19:06 Body Mass Index 46.99 (136.08 kg, 170.18 cm) wh MDM: 19:06 Patient medically screened. 19:48 Data reviewed: vital signs, nurses notes. Data interpreted: Pulse oximetry: on room air kb is 97 %. Interpretation: normal. 20:31 Counseling: I had a detailed discussion with the patient and/or guardian regarding: the kb historical points, exam findings, and any diagnostic results supporting the discharge/admit diagnosis, lab results, radiology results, the need for outpatient follow up, a family practitioner, to return to the emergency department if symptoms worsen or persist or if there are any questions or concerns that arise at home. 10/25 19:07 Order name: Basic Metabolic Panel 10/25 19:07 Order name: CBC with Diff 10/25 19:07 Order name: LFT's 10/25 19:07 Order name: Magnesium; Complete Time: 20:14 kb 10/25 19:07 Order name: NT PRO-BNP; Complete Time: 20:14 10/25 19:07 Order name: Troponin (emerg Dept Use Only); Complete Time: 20:14 kb 10/25 19:07 Order name: XRAY Chest (1 view); Complete Time: 20:14 kb 10/25 19:07 Order name: EKG; Complete Time: 19:08 10/25 19:07 Order name: Cardiac monitoring; Complete Time: 19:28 kb 10/25 19:07 Order name: EKG - Nurse/Tech; Complete Time: 19:28 kb 10/25 19:07 Order name: Basic Metabolic Panel; Complete Time: 20:14 [facility] 10/25 19:07 Order name: CBC with Automated Diff; Complete Time: 20:31 [facility] 10/25 19:07 Order name: Liver (Hepatic) Function; Complete Time: 20:14 [facility] 10/25 19:07 Order name: Labs collected and sent; Complete Time: 19:28 kb 10/25 19:07 Order name: O2 Per Protocol; Complete Time: 19:28 kb 10/25 19:07 Order name: O2 Sat Monitoring; Complete Time: 19:28 kb 10/25 20:01 Order name: Labs - recollect needed: lavender and blue top; Complete Time: 20:14 mw2 EC:48 Rate is 74 beats/min. Rhythm is regular. QRS Pollock is Normal. MD interval is normal at kb 150 msec. QRS interval is normal at 88 msec. QT interval is normal at 404 msec. Administered Medications: No medications were administered Disposition: 10/26 06:21 Co-signature as Attending Physician, Wallace Meehan MD. 7 Disposition: 10/25/20 20:35 Discharged to Home. Impression: Chest pain on breathing, Hypertension. - Condition is Stable. - Discharge Instructions: Nonspecific Chest Pain, [id number], Hypertension, [id number]. - Medication Reconciliation Form, Thank You Letter, Antibiotic Education, Prescription Opioid Use form. - Follow up: Emergency Department; When: As needed; Reason: Worsening of condition. Follow up: Private Physician; When: 2 - 3 days; Reason: Recheck today's complaints, Continuance of care, Re-evaluation by your physician. Signatures: Dispatcher [employer] [facility] Paola Ralph, MENS LOCKER ROOM ATTENDANT-C MENS LOCKER ROOM ATTENDANT-Opal Moreno, RN RN Jasvir Gonsalves mw2 Wallace Meehan MD MD 7 Corrections: (The following items were deleted from the chart) 10/25 20:14 19:07 IV Saline Lock ordered. count includes the [facility] 20:15 19:08 PROTIME (+INR)+COAG.LAB.BRZ ordered. [facility] 20:43 20:35 10/25/2020 20:35 Discharged to Home. Impression: Chest pain on breathing; Hypertension. Condition is Stable. Forms are Medication Reconciliation Form, Thank You Letter, Antibiotic Education, Prescription Opioid Use. Follow up: Emergency Department; When: As needed; Reason: Worsening of condition. Follow up: Private Physician; When: 2 - 3 days; Reason: Recheck today's complaints, Continuance of care, Re-evaluation by your physician. kb
[2020-10-25 20:58] VITALS: BP 138/83; O2SAT 100
== END 2020-10-25 20:43 | disposition home or self-care (01) ==
LOC: ER 18:45
DX: I10 Essential (primary) hypertension (principal); R07.1 Chest pain on breathing; F41.9 Anxiety disorder, unspecified; L40.50 Arthropathic psoriasis, unspecified
CPT/HCPCS: 36415; 71045; 80048; 80076; 83735; 83880; 84484; 85025; 93005; 99284

== ENCOUNTER 2023-01-31 06:24 | Emergency (ER) | payer OTHER ==
--- NOTE | 2023-01-31 07:34 | EDPHYS ---
Physician Documentation [facility] Name: Marlys Davis Age: 37 yrs Sex: Female : 1985 Arrival Date: 01/31/2023 Time: 06:24 Bed 13 Private MD: ED Physician Ray Campbell HPI: 01/31 06:45 This 37 yrs old Female presents to ER via Unassigned with complaints of Hand sp4 Pain. 07:00 37-year-old female with history of anxiety, psoriatic arthritis, psoriasis depression sp4 presents with right wrist pain starting about 3 weeks ago. The right wrist pain is associated with a small bulge dorsal surface of the right wrist. Patient states pain is most prominent when she types or changes position. No redness, no swelling, denied any numbness. Historical: - Allergies: 06:49 Tomatoes; pf1 - PMHx: 06:49 Anxiety; Psoractic Arthritis; psoriasis; depression; pf1 - PSHx: 06:49 left arm surgery; pf1 - Immunization history:: Adult Immunizations up to date, Client reports receiving the 2nd dose of the Covid vaccine, Last tetanus immunization: < 10 years ago Flu vaccine is not up to date. - Social history:: Smoking status: Patient denies any tobacco usage or history of. Patient uses alcohol, but reports only rare drinking. Patient/guardian denies using street drugs. - Family history:: not pertinent. ROS: 07:00 Constitutional: Negative for fever, chills, and weight loss, MS/Extremity: Negative for sp4 injury and deformity, positive for right wrist pain 07:00 All other systems are negative. Exam: 07:00 Constitutional: This is a well developed, well nourished patient who is awake, alert, sp4 and in no acute distress. Head/Face: Normocephalic, atraumatic. Eyes: Pupils equal round and reactive to light, extra-ocular motions intact. Lids and lashes normal. Conjunctiva and sclera are not injected. Cornea within normal limits. Periorbital areas with no swelling, redness, or edema. ENT: Nares patent. No nasal discharge, no septal abnormalities noted. Tympanic membranes are normal and external auditory canals are clear. Oropharynx with no redness, swelling, or masses, exudates, or evidence of obstruction, uvula midline. Mucous membranes moist. Neck: Trachea midline, no thyromegaly or masses palpated, and no cervical lymphadenopathy. Supple, full range of motion without nuchal rigidity, or vertebral point tenderness. Chest/axilla: Normal chest wall appearance and motion. Nontender with no deformity. No lesions are appreciated. Cardiovascular: Regular rate and rhythm with a normal S1 and S2. No gallops, murmurs, or rubs. Normal PMI, no JVD. No pulse deficits. Respiratory: Lungs have equal breath sounds bilaterally, clear to auscultation and percussion. No rales, rhonchi or wheezes noted. No increased work of breathing, no retractions or nasal flaring. Abdomen/GI: Soft, non-tender, with normal bowel sounds. No distension or tympany. No guarding or rebound. No evidence of tenderness throughout. Back: No spinal tenderness. No costovertebral tenderness. Skin: Warm, dry with normal turgor. Normal color with no rashes, no lesions, and no evidence of cellulitis. MS/ Extremity: Pulses equal, no cyanosis. Neurovascular intact. Full, normal range of motion. There is a small bulge to the right dorsal wrist indicative of possible ganglion cyst Neuro: Awake and alert, GCS 15, oriented to person, place, time, and situation. Cranial nerves II-XII grossly intact. Motor strength 5/5 in all extremities. Sensory grossly intact. Psych: Awake, alert, with orientation to person, place and time. Behavior, mood, and affect are within normal limits Vital Signs: 06:32 BP 133 / 80; Pulse 69; Resp 16; Temp 98.1; Pulse Ox 100% on R/A; Weight 145.15 kg; pf1 Height 5 ft. 7 in. ; Pain 7/10; 06:59 BP 125 / 80; Pulse 65; Resp 18 S; Pulse Ox 100% on R/A; ha1 06:32 Body Mass Index 50.12 (145.15 kg, 170.18 cm) pf1 06:32 Pain Scale: Adult pf1 Procedures: 07:29 Splinting: Splint applied to right wrist using wrist splint, Velcro Wrist splint . sp4 applied by myself. Examined by me, post splint application: neurovascular intact, 2+ distal pulses palpable, brisk capillary refill noted, Patient tolerated well. MDM: 06:51 Patient medically screened. sp4 07:00 Differential diagnosis: contusion, abrasion, tendonitis, Ganglion cyst. Data reviewed: sp4 vital signs, nurses notes, old medical records, radiologic studies, plain films. 07:29 ED course: X-rays negative, antibiotics splint for comfort, Velcro wrist splint sp4 applied. Will refer patient to Dr. Gardiner with orthopedic surgery for evaluation in the office.. 01/31 06:51 Order name: Wrist Right 3 View XRAY; Complete Time: 08:09 sp4 01/31 07:42 Order name: Splint - Wrist: Velcro wrist splint applied by MD; Complete Time: 07:55 sp4 Administered Medications: No medications were administered Disposition Summary: 01/31/23 07:34 Discharge Ordered Location: Home sp4 Problem: new sp4 Symptoms: have improved sp4 Condition: Stable sp4 Diagnosis - Ganglion, right wrist sp4 Followup: sp4 - With: Vikram Gardiner MD - When: 7 - 10 days - Reason: Recheck today's complaints Discharge Instructions: - Discharge Summary Sheet sp4 - Ganglion Cyst sp4 Forms: - Patient Portal Instructions sp4 Signatures: Dispatcher [employer] Leslie Mann RN RN pf1 Ray Campbell MD MD sp4
--- NOTE | 2023-01-31 07:34 | ER ---
Nurse's Notes [facility] Name: Marlys Davis Age: 37 yrs Sex: Female : 1985 Arrival Date: 01/31/2023 Time: 06:24 Bed 13 Private MD: Diagnosis: Ganglion, right wrist Presentation: 01/31 06:32 Chief complaint: Patient states: right hand/wrist pain of 7 with knot,onset 3 weeks. pf1 Patient denies any injury. 06:32 Coronavirus screen: Vaccine status: Patient reports receiving the 2nd dose of the covid pf1 vaccine. Moderna Client denies travel out of the [place] in the last 14 days. At this time, the client does not indicate any symptoms associated with coronavirus-19. Ebola Screen: Patient negative for fever greater than or equal to 101.5 degrees Fahrenheit, and additional compatible Ebola Virus Disease symptoms. Initial Sepsis Screen: Does the patient meet any 2 criteria? No. Patient's initial sepsis screen is negative. Does the patient have a suspected source of infection? No. Patient's initial sepsis screen is negative. Risk Assessment: Do you want to hurt yourself or someone else? Patient reports no desire to harm self or others. 06:32 Method Of Arrival: Ambulatory pf1 06:32 Acuity: CHRISTY 4 pf1 Historical: - Allergies: 06:49 Tomatoes; pf1 - PMHx: 06:49 Anxiety; Psoractic Arthritis; psoriasis; depression; pf1 - PSHx: 06:49 left arm surgery; pf1 - Immunization history:: Adult Immunizations up to date, Client reports receiving the 2nd dose of the Covid vaccine, Last tetanus immunization: < 10 years ago Flu vaccine is not up to date. - Social history:: Smoking status: Patient denies any tobacco usage or history of. Patient uses alcohol, but reports only rare drinking. Patient/guardian denies using street drugs. - Family history:: not pertinent. Screenin:[address] [facility] ED Fall Risk Assessment (Adult) History of falling in the last 3 months, pf1 including since admission No falls in past 3 months (0 pts) Confusion or Disorientation No (0 pts) Intoxicated or Sedated No (0 pts) Impaired Gait No (0 pts) Mobility Assist Device Used No (0 pt) Altered Elimination No (0 pt) Score/Fall Risk Level 0 - 2 = Low Risk Oriented to surroundings, Maintained a safe environment, Educated pt \T\ family on fall prevention, incl call for assistance when getting out of bed, Assessed \T\ reinforced patient's understanding of fall precautions, Provided non-skid footwear, Hourly rounding (assess needs \T\ fall precautionary measures) done, Used ambulatory aids as needed (educated on \T\ assisted with), Used gait belt as appropriate. Abuse screen: Denies threats or abuse. Nutritional screening: No deficits noted. Tuberculosis screening: No symptoms or risk factors identified. Assessment: 06:32 General: Appears in no apparent distress. comfortable, obese, well groomed, well pf1 developed, Behavior is calm, cooperative, appropriate for age, quiet. Pain: Complains of pain in right hand Pain currently is 7 out of 10 on a pain scale. Neuro: No deficits noted. Level of Consciousness is awake, alert, obeys commands, Oriented to person, place, time, situation. Cardiovascular: No deficits noted. Capillary refill < 3 seconds Patient's skin is warm and dry. Respiratory: No deficits noted. Airway is patent Respiratory effort is even, unlabored, Respiratory pattern is regular, symmetrical. GI: No deficits noted. No signs and/or symptoms were reported involving the gastrointestinal system. : No deficits noted. No signs and/or symptoms were reported regarding the genitourinary system. EENT: No deficits noted. No signs and/or symptoms were reported regarding the EENT system. Derm: No deficits noted. No signs and/or symptoms reported regarding the dermatologic system. Musculoskeletal: Circulation, motion, and sensation intact. Capillary refill < 3 seconds, Reports pain in right wrist/hand. 08:04 General: Appears in no apparent distress. CMS intact. ss Vital Signs: 06:32 BP 133 / 80; Pulse 69; Resp 16; Temp 98.1; Pulse Ox 100% on R/A; Weight 145.15 kg; pf1 Height 5 ft. 7 in. ; Pain 7/10; 06:59 BP 125 / 80; Pulse 65; Resp 18 S; Pulse Ox 100% on R/A; ha1 06:32 Body Mass Index 50.12 (145.15 kg, 170.18 cm) pf1 06:32 Pain Scale: Adult pf1 ED Course: 06:29 Patient arrived in ED. kj1 06:45 Ray Campbell MD is Attending Physician. sp4 06:49 Triage completed. pf1 06:52 Patient has correct armband on for positive identification. Bed in low position. Call pf1 light in reach. 07:30 Wrist Right 3 View XRAY In Process Unspecified. EDMS 07:33 Vikram Gardiner MD is Referral Physician. sp4 08:04 No provider procedures requiring assistance completed. Patient did not have IV access ss during this emergency room visit. Administered Medications: No medications were administered Medication: 08:04 VIS not applicable for this client. ss Outcome: 07:34 Discharge ordered by . sp4 08:04 Discharged to home ambulatory. ss 08:04 Condition: good 08:04 Discharge instructions given to patient, Instructed on discharge instructions, follow up and referral plans. medication usage, Demonstrated understanding of instructions, follow-up care, medications. 08:07 Patient left the ED. ss Signatures: Dispatcher [employer] EDFL Karli Garcia RN RN RamoNelida kj1 Moriah Mcqueen RN RN 1 Leslie Perales RN RN pf1 Ray Campbell MD MD sp4 Corrections: (The following items were deleted from the chart) 06:52 06:32 Chief complaint: Patient states: right hand pain of 7 with knot,onset 3 weeks. pf1 Patient denies any injury. pf1
--- NOTE | 2023-01-31 08:07 | RAD REPORT ---
EXAM DESCRIPTION: RAD - Wrist Right 3 View - 01/31/2023 7:28 am CLINICAL HISTORY: right wrist pain, dorsal COMPARISON: No comparisons TECHNIQUE: Right wrist, 3 views. FINDINGS: No acute fracture. There is no dislocation or periosteal reaction noted. No other signific ant bony finding. No foreign body or other soft tissue abnormality. IMPRESSION: Negative right wrist examination.
[2023-01-31 08:43] VITALS: TEMP 98.1; O2SAT 100
[2023-01-31 08:44] VITALS: BP 125/80
== END 2023-01-31 08:07 | disposition home or self-care (01) ==
LOC: ER 06:24
DX: M67.431 Ganglion, right wrist (principal)
CPT/HCPCS: 99282

== ENCOUNTER → 2023-07-27 | Emergency (ER) | payer OTHER ==
[~2023-07-27] MED LIST: GUAIFENESIN/DM 5 ML UCUP ONE; NA CHLORIDE 0.9% 1,000 ML ONE
[2023-07-27 06:29] LABS: Absolute Eosinophils 0.1 K/uL (0-0.5); Absolute Lymphocytes (CBC) 0.7 K/uL (0.7-4.9); Basophils % 0.4 % (0-1.3); Eosinophils % 0.8 % (0-4.4); Hematocrit 38.7 % (36.0-45.0); Hemoglobin 13.2 g/dL (12.0-15.0); MCV 85.7 fL (80-100); MPV 8.6 fL (7.6-11.3); Platelets 275 thou/uL (152-406); RBC Red Blood Cell Count 4.52 M/uL (3.86-4.86)
[2023-07-27 06:30] LABS: Protime INR 1.15
[2023-07-27 06:45] LABS: Albumin 3.2 g/dL (3.4-5.0); Albumin/Globulin Ratio 0.8 (1.1-1.8); Anion Gap 8.6 mEq/L (5.0-15.0); Bilirubin Direct 0.1 mg/dL (0-0.2); Bilirubin Indirect, Calculated 0.2 mg/dL (0.2-0.8); Bilirubin Total 0.3 mg/dL (0.2-1.0); Magnesium 1.9 mg/dL (1.6-2.4); Potassium 3.6 mEq/L (3.5-5.1); Protein, Total 7.2 g/dL (6.4-8.2); Troponin High Sensitivity 4.9 pg/mL (<58.9)
[2023-07-27 06:54] LABS: SARS-CoV-2 Antigen Rapid Res Negative (Negative)
--- NOTE | 2023-07-27 07:26 | ER ---
Nurse's Notes [facility] Name: Marlys Davis Age: 38 yrs Sex: Female : 1985 Arrival Date: 07/27/2023 Time: 05:41 Bed 7 Private MD: Diagnosis: Acute bronchitis, unspecified;Influenza A, acute systemic viral illness Presentation: 07/26 06:10 Chief complaint: Patient states: COUGH X2 DAYS. FEVER STARTED TONIGHT. Coronavirus jj7 screen: cough unrelated to allergies, headache. Ebola Screen: No symptoms or risks identified at this time. Initial Sepsis Screen: Does the patient meet any 2 criteria? No. Patient's initial sepsis screen is negative. Does the patient have a suspected source of infection? No. Patient's initial sepsis screen is negative. Risk Assessment: Do you want to hurt yourself or someone else? Patient reports no desire to harm self or others. Onset of symptoms was July 25, 2023. 06:10 Method Of Arrival: Wheelchair jj7 06:10 Acuity: CHRISTY 4 jj7 Triage Assessment: 06:14 General: Appears in no apparent distress. uncomfortable, Behavior is calm, cooperative, jj7 appropriate for age. Pain: Complains of pain in HEADACHE. Neuro: Reports headache. Respiratory: Reports cough that is dry, Onset: The symptoms/episode began/occurred 2 DAYS AGO, the patient has mild shortness of breath. 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 - Social history:: Smoking status: Patient denies any tobacco usage or history of. Patient uses alcohol, occasionally. - Family history:: not pertinent. Screenin:16 [facility] ED Fall Risk Assessment (Adult) History of falling in the last 3 months, jj7 including since admission No falls in past 3 months (0 pts) Confusion or Disorientation No (0 pts) Intoxicated or Sedated No (0 pts) Impaired Gait No (0 pts) Mobility Assist Device Used No (0 pt) Altered Elimination No (0 pt) Score/Fall Risk Level 0 - 2 = Low Risk Oriented to surroundings, Maintained a safe environment, Educated pt \T\ family on fall prevention, incl call for assistance when getting out of bed. Abuse screen: Denies threats or abuse. Nutritional screening: No deficits noted. Tuberculosis screening: No symptoms or risk factors identified. Assessment: 06:16 Reassessment: SEE TRIAGE ASSESSMENT. Cardiovascular: No deficits noted. Respiratory: j7 Airway is patent Respiratory effort is even, unlabored. 07:00 Reassessment: Patient appears in no apparent distress at this time. Patient and/or db family updated on plan of care and expected duration. Pain level reassessed. Patient is alert, oriented x 3, equal unlabored respirations, skin warm/dry/pink. General: Appears in no apparent distress. comfortable, Behavior is calm, cooperative. Neuro: Level of Consciousness is awake, alert, obeys commands, Oriented to person, place, time, situation. Cardiovascular: Rhythm is regular. Respiratory: Airway is patent Respiratory effort is even, unlabored, Breath sounds are clear. 07:05 Reassessment: PT IV FLUIDS NOT FLOWING. FLUSHED LINE AND PLACED FLUIDS ON PUMP AT BOLUS db RATE. 07:56 Reassessment: PT DC PENDING IV FLUIDS. db 08:22 Reassessment: Patient appears in no apparent distress at this time. Patient and/or db family updated on plan of care and expected duration. Pain level reassessed. Patient is alert, oriented x 3, equal unlabored respirations, skin warm/dry/pink. Patient states feeling better. Patient states symptoms have improved. Vital Signs: 06:10 BP 127 / 83; Pulse 102; Resp 20; Temp 100; Pulse Ox 97% ; Weight 147.42 kg; Height 5 jj7 ft. 7 in. ; Pain 7/10; 07:00 BP 158 / 91; Pulse 97; Resp 18; Pulse Ox 96% ; db 08:00 BP 148 / 88; Pulse 95; Resp 18; Pulse Ox 95% on R/A; db 06:10 Body Mass Index 50.90 (147.42 kg, 170.18 cm) [facility] 06:10 Pain Scale: Adult [facility] ED Course: 05:49 Patient arrived in ED. cm10 05:58 Ray Campbell MD is Attending Physician. sp4 06:13 Triage completed. jj7 06:14 Arm band placed on right wrist. Patient placed in an exam room, on a stretcher. jj7 06:15 Inserted saline lock: 22 gauge in left antecubital area, using aseptic technique. Blood ha1 collected. 06:16 Patient has correct armband on for positive identification. Bed in low position. Call jj7 light in reach. Side rails up X 1. Adult w/ patient. Client placed on continuous cardiac and pulse oximetry monitoring. NIBP monitoring applied. 06:27 Initial lab(s) drawn, by ED staff, sent to lab. COVID swab sent to lab. Flu and/or RSV jj7 swab sent to lab. 07:24 Clarisse Howard, RN is Primary Nurse. db 08:22 Provided Education on: DISCHARGE AND FLU CARE. db 08:22 No provider procedures requiring assistance completed. IV discontinued, intact, db bleeding controlled, No redness/swelling at site. Administered Medications: 06:26 Drug: NS 0.9% IV 1000 ml IV at 1 bolus Per protocol; 1000 mL bolus Route: IV; Rate: 1 jj7 bolus; Site: left antecubital; 08:23 Follow up: Response: No adverse reaction; IV Status: Completed infusion; IV Intake: db 1000ml 06:26 Drug: Dextromethorphan-Guaifenesin PO Liquid 10 mg-100 mg/5 mL 10 ml PO once Route: PO; jj7 08:23 Follow up: Response: No adverse reaction db Medication: 06:16 VIS not applicable for this client. jj7 Intake: 08:23 IV: 1000ml; Total: 1000ml. db Outcome: 07:26 Discharge ordered by . sp4 08:22 Discharged to home ambulatory, with family, db 08:22 Condition: stable 08:22 Discharge instructions given to patient, Instructed on discharge instructions, follow up and referral plans. Prescriptions given X 2, 08:23 Patient left the ED. db Signatures: Moriah Mcqueen RN RN ha1 Abbi Sorto RN RN jj7 Clarisse Howard, RN RN Ray Conn MD MD sp4 Zonia Paige RN RN cm10 Corrections: (The following items were deleted from the chart) 06:41 06:15 Inserted saline lock: 22 gauge in left antecubital area, using aseptic technique. ha1 Blood collected. jj7
--- NOTE | 2023-07-27 07:26 | EDPHYS ---
Physician Documentation [facility] Name: Marlys Davis Age: 38 yrs Sex: Female : 1985 Arrival Date: 07/27/2023 Time: 05:41 Bed 7 Private MD: ED Physician Ray Campbell HPI: 07/26 05:59 This 38 yrs old Female presents to ER via Unassigned with complaints of sp4 Shortness Of Breath. 06:23 This patient is Presenting with cough for the past 2 days associated with chest sp4 discomfort and fever 101.5 at home today also shortness of breath feeling unwell. BILLING SPEC: 06:14 LMP 07/20/2023, unknown jj7 Historical: - Allergies: 06:14 Tomatoes; jj7 - PMHx: 06:14 Anxiety; Depression; Psoractic Arthritis; psoriasis; jj7 - PSHx: 06:14 left arm surgery; jj7 - Immunization history:: Client reports receiving the 1st dose of the Covid vaccine, Flu vaccine is not up to date. - Social history:: Smoking status: Patient denies any tobacco usage or history of. Patient uses alcohol, occasionally. - Family history:: not pertinent. ROS: 06:23 Constitutional: Positive for fever, cough, chest discomfort, shortness of breath. sp4 06:23 All other systems are negative, Exam: 06:23 Constitutional: This is a well developed, well nourished patient who is awake, alert, sp4 and in no acute distress. Head/Face: Normocephalic, atraumatic. Eyes: Pupils equal round and reactive to light, extra-ocular motions intact. Lids and lashes normal. Conjunctiva and sclera are not injected. Cornea within normal limits. Periorbital areas with no swelling, redness, or edema. ENT: Nares patent. No nasal discharge, no septal abnormalities noted. Tympanic membranes are normal and external auditory canals are clear. Oropharynx with no redness, swelling, or masses, exudates, or evidence of obstruction, uvula midline. Mucous membranes moist. Neck: Trachea midline, no thyromegaly or masses palpated, and no cervical lymphadenopathy. Supple, full range of motion without nuchal rigidity, or vertebral point tenderness. Chest/axilla: Normal chest wall appearance and motion. Nontender with no deformity. No lesions are appreciated. Cardiovascular: Regular rate and rhythm with a normal S1 and S2. No gallops, murmurs, or rubs. Normal PMI, no JVD. No pulse deficits. Respiratory: Lungs have equal breath sounds bilaterally, clear to auscultation and percussion. No rales, rhonchi or wheezes noted. No increased work of breathing, no retractions or nasal flaring. Abdomen/GI: Soft, with normal bowel sounds. No distension or tympany. No guarding or rebound. No evidence of tenderness throughout. Back: No spinal tenderness. No costovertebral tenderness. Skin: Warm, dry with normal turgor. Normal color with no rashes, no lesions, and no evidence of cellulitis. MS/ Extremity: Pulses equal, no cyanosis. Neurovascular intact. Full, normal range of motion. Neuro: Awake and alert, GCS 15, oriented to person, place, time, and situation. Cranial nerves II-XII grossly intact. Motor strength 5/5 in all extremities. Sensory grossly intact. Psych: Awake, alert, with orientation to person, place and time. Behavior, mood, and affect are within normal limits Vital Signs: 06:10 BP 127 / 83; Pulse 102; Resp 20; Temp 100; Pulse Ox 97% ; Weight 147.42 kg; Height 5 jj7 ft. 7 in. ; Pain 7/10; 07:00 BP 158 / 91; Pulse 97; Resp 18; Pulse Ox 96% ; db 08:00 BP 148 / 88; Pulse 95; Resp 18; Pulse Ox 95% on R/A; db 06:10 Body Mass Index 50.90 (147.42 kg, 170.18 cm) j7 06:10 Pain Scale: Adult jj7 MDM: 06:02 Patient medically screened. sp4 06:24 Differential diagnosis: Anxiety Reaction asthma, Bronchitis Chronic Obstructive sp4 Pulmonary Disease pneumonia. Data reviewed: vital signs, nurses notes, old medical records, lab test result(s), radiologic studies, plain films. 07:23 Antibiotic administration: Not indicated. ED course: Positive for influenza A. Will sp4 prescribe Tamiflu and ondansetron. Will recommend [id number] dextromethorphan and ibuprofen. . 07:39 ED course: EXAM DESCRIPTION: XR Chest, one view CLINICAL HISTORY: SOB. COMPARISON: None sp4 FINDINGS: The heart is normal in size. Mild perihilar vascular congestion is noted. The lungs are clear. No dense focal consolidation is seen. No evidence pleural effusions . No pneumothorax is seen. The osseous structures appear unremarkable . IMPRESSION: Mild perihilar vascular congestion.. 07/26 05:59 Order name: Basic Metabolic Panel 4 07/26 05:59 Order name: CBC with Diff sp4 07/26 05:59 Order name: LFT's sp4 07/26 05:59 Order name: Magnesium sp4 07/26 05:59 Order name: NT PRO-BNP 4 07/26 05:59 Order name: PT-INR 4 07/26 05:59 Order name: Troponin HS 4 07/26 06:06 Order name: Influenza Screen (a \T\ B) 4 07/26 06:06 Order name: SARS RAPID 4 07/26 06:30 Order name: Protime (+INR); Complete Time: 07:16 EDMS 07/26 06:31 Order name: CBC with Automated Diff; Complete Time: 07:16 EDMS 07/26 06:37 Order name: Influenza Screen (A ; Complete Time: 07:16 EDMS 07/26 06:46 Order name: Basic Metabolic Panel; Complete Time: 07:16 EDMS 07/26 06:46 Order name: Liver (Hepatic) Function; Complete Time: 07:16 EDMS 07/26 06:46 Order name: Troponin High Sensitivity; Complete Time: 07:16 EDMS 07/26 06:46 Order name: NT PRO-BNP; Complete Time: 07:16 EDMS 07/26 06:46 Order name: Magnesium; Complete Time: 07:16 EDMS 07/26 06:55 Order name: SARS-COV-2 Antigen Rapid; Complete Time: 07:16 EDMS 07/26 05:59 Order name: XRAY Chest (1 view) 4 07/26 05:59 Order name: EKG; Complete Time: 17:15 sp4 07/26 05:59 Order name: Cardiac monitoring; Complete Time: 06:24 sp4 07/26 05:59 Order name: IV Saline Lock; Complete Time: 06:24 sp4 07/26 05:59 Order name: Labs collected and sent; Complete Time: 06:24 sp4 07/26 05:59 Order name: O2 Per Protocol; Complete Time: 06:24 sp4 07/26 05:59 Order name: O2 Sat Monitoring; Complete Time: 06:24 sp4 Administered Medications: 06:26 Drug: NS 0.9% IV 1000 ml IV at 1 bolus Per protocol; 1000 mL bolus Route: IV; Rate: 1 jj7 bolus; Site: left antecubital; 08:23 Follow up: Response: No adverse reaction; IV Status: Completed infusion; IV Intake: db 1000ml 06:26 Drug: Dextromethorphan-Guaifenesin PO Liquid 10 mg-100 mg/5 mL 10 ml PO once Route: PO; jj7 08:23 Follow up: Response: No adverse reaction db Disposition Summary: 07/27/23 07:26 Discharge Ordered Problem: new sp4 Symptoms: have improved sp4 Condition: Stable sp4 Diagnosis - Acute bronchitis, unspecified sp4 - Influenza A, acute systemic viral illness sp4 Followup: sp4 - With: Private Physician - When: 7 - 10 days - Reason: Recheck today's complaints Discharge Instructions: - Discharge Summary Sheet sp4 - Influenza, Adult, [id number] sp4 Forms: - Work release form db - Patient Portal Instructions sp4 Prescriptions: - ondansetron 8 mg Oral Tablet,disintegrating - take 1 tablet ORAL route every 6 hours PRN nausea; 30 tablet; Refills: 0, sp4 Product Selection Permitted - Tamiflu 75 mg Oral capsule - take 1 tablet ORAL route every 12 hours for 5 days; 10 tablet; Refills: 0, sp4 Product Selection Permitted Signatures: Dispatcher [employer] Abbi Sauer RN RN jj7 Ray Campbell MD MD sp4 Clarisse Howard RN Corrections: (The following items were deleted from the chart) 06:06 05:59 EKG - Nurse/Tech ordered. sp4 sp4
[2023-07-27 08:30] VITALS: TEMP 100
[2023-07-27 08:55] VITALS: BP 148/88; O2SAT 95
--- NOTE | 2023-07-27 10:51 | RAD REPORT ---
EXAM DESCRIPTION: RAD - Chest Single View - 07/27/2023 6:24 am CLINICAL HISTORY: SOB. COMPARISON: None FINDINGS: The heart is normal in size. Mild perihilar vascular congestion is noted. The lungs are clear. No dense focal consolidation is seen. No evidence pleural effusions . No pneumothorax is seen. The osseous structures appear unremarkable . IMPRESSION: Mild perihilar vascular congestion. Electronically signed by: Demi Padilla MD 07/27/2023 07:22 AM CDT Due to temporary technical issues with the PACS/Fluency reporting system, reports are being signed by the in house radiologist without review as a courtesy to ensure prompt reporting. The interpreting r adiologist is fully responsible for the content of the report.
== END ==
LOC: ER 05:41
DX: J10.1 Influenza due to other identified influenza virus with other respiratory manifestations (principal); J20.9 Acute bronchitis, unspecified; Z11.52 Encounter for screening for COVID-19; Z91.018 Allergy to other foods
CPT/HCPCS: 85025; 80048; 36415; 83735; 85610; 80076; 84484; 83880; 87804 ×2; 71045; 87811; J7030